=== PATIENT | female | born 1965 | race Caucasian/White ===

== ENCOUNTER 2023-11-27 18:43 | Inpatient (IN) | payer MEDICARE ==
[~2023-11-27] VITALS: Ht 167.6 cm; Wt 86.2 kg
[2023-11-28] MEDS ORDERED: MAG HYDROX/AL HYDROX/SIMETH 30 ML UDC PO PRN (01:30)
[2023-11-28] MEDS ORDERED: MAGNESIUM HYDROXIDE 30 ML UDC PO PRN (01:30)
[2023-11-28] MEDS: BLOOD SUGAR DIAGNOSTIC 1 EACH STRIP IN ONE (01:31)
[2023-11-28 01:34] VITALS: BP 154/83; TEMP 97.7; O2SAT 95
[2023-11-28 07:23] LABS: ALBUMIN 3.2 g/dL (3.4-5.0); BILIRUBIN,TOTAL 0.5 mg/dL (0.2-1.0); CALCIUM, SERUM 9.4 mg/dL (8.5-10.1); CREATININE 1.1 mg/dL (0.6-1.3); POTASSIUM 3.8 mmol/L (3.5-5.1); TOTAL PROTEIN, SERUM 7.4 g/dL (6.4-8.2)
[2023-11-28 08:00] VITALS: BP 165/94; TEMP 98.6; O2SAT 97
[2023-11-28] MEDS ORDERED: AMLO-213 PO (09:48)
[2023-11-28] MEDS ORDERED: CLON1PAT2 TD (09:48)
[2023-11-28] MEDS: risperiDONE 1 MG TABLET PO SCH (12:31)
[2023-11-28] MEDS: OXCARBAZEPINE 150 MG TABLET PO SCH (12:48)
[2023-11-28 16:00] VITALS: BP 122/48; TEMP 97.9; O2SAT 97
[2023-11-28 19:59] VITALS: BP 121/62; TEMP 98.4; O2SAT 97
[2023-11-29 08:00] VITALS: BP_SYST 166; BP_DIAS 92; BP_DIAS 97; TEMP 97.8; TEMP 98.6; O2SAT 97; O2SAT 99
[2023-11-29] MEDS: AMLODIPINE BESYLATE 10 MG TABLET PO SCH (09:13)
[2023-11-29] MEDS: ACETAMINOPHEN 325 MG TABLET PO PRN (09:48)
[2023-11-29] MEDS: risperiDONE 1 MG TABLET PO SCH (16:27)
[2023-11-29 20:00] VITALS: BP 151/76; TEMP 98; O2SAT 99
[2023-11-30 08:00] VITALS: BP 160/84; TEMP 98.6; O2SAT 97
[2023-11-30] MEDS: OXCARBAZEPINE 150 MG TABLET PO SCH (13:27)
[2023-11-30 16:00] VITALS: BP 130/67; TEMP 98.7; O2SAT 97
[2023-11-30 20:00] VITALS: BP 141/71; TEMP 98.1; O2SAT 96
[2023-11-30] MEDS: LORAZEPAM 0.5 MG TABLET PO PRN (22:57)
[2023-12-01 08:00] VITALS: BP 159/88; TEMP 97.7; O2SAT 97
[2023-12-01 16:00] VITALS: BP 135/79; TEMP 98.2; O2SAT 99
[2023-12-02 08:00] VITALS: BP 121/51; TEMP 98.2; O2SAT 97
[2023-12-02 16:00] VITALS: BP 131/63; TEMP 97.4; O2SAT 96
[2023-12-02 20:00] VITALS: BP 138/79; TEMP 98.3; O2SAT 99
[2023-12-03 08:00] VITALS: BP 148/74; TEMP 98.2; O2SAT 97
[2023-12-03] MEDS: CLONIDINE HCL 0.2MG/24H PTWK 1 EA PATCH TD SCH (09:08)
[2023-12-03 16:00] VITALS: BP 133/66; TEMP 98.6; O2SAT 97
[2023-12-03 20:27] VITALS: BP 151/84; TEMP 98.4; O2SAT 100
[2023-12-03] MEDS: TEMAZEPAM 7.5 MG CAPSULE PO PRN (21:35)
[2023-12-04 08:00] VITALS: BP 148/98; TEMP 97.6; O2SAT 97
[2023-12-04 16:00] VITALS: BP 133/72; TEMP 97.5; O2SAT 96
[2023-12-04 20:43] VITALS: BP 134/76; TEMP 98.1; O2SAT 98
[2023-12-05 07:12] LABS: BASOPHILS % (AUTO) 0.9 % (0.0-2.0); EOSINOPHILS # (AUTO) 0.2 K/uL (0.0-0.7); HEMATOCRIT 43 % (33-45); HEMOGLOBIN 13.9 g/dL (11.5-14.8); LYMPHOCYTES # (AUTO) 0.7 K/uL (0.8-4.8); LYMPHOCYTES % (AUTO) 14.3 % (20.0-44.0); MEAN CORPUSCULAR HEMOGLOBIN 27 PG (26.0-33.0); MEAN CORPUSCULAR HGB CONC 33 g/dl (31.0-36.0); MEAN CORPUSCULAR VOLUME 82 fL (82-100); MONOCYTES # (AUTO) 0.5 K/uL (0.1-1.30); MONOCYTES % (AUTO) 9.9 % (2.0-12.0); NEUTROPHILS # (AUTO) 3.7 K/uL (1.8-8.9); NEUTROPHILS % (AUTO) 70.9 % (43.0-81.0); PLATELET COUNT (AUTO) 259 K/uL (150-450); RED BLOOD CELL COUNT(AUTO) 5.22 MIL/uL (4.0-5.2); RED CELL DISTRIBUTION WIDTH 14.4 % (11.5-15.0); WHITE BLOOD COUNT (AUTO) 5.2 K/uL (4.3-11.0)
[2023-12-05 07:14] LABS: ALBUMIN 3.2 g/dL (3.4-5.0); BILIRUBIN,TOTAL 0.3 mg/dL (0.2-1.0); CALCIUM, SERUM 9.2 mg/dL (8.5-10.1); POTASSIUM 3.8 mmol/L (3.5-5.1); TOTAL PROTEIN, SERUM 7.4 g/dL (6.4-8.2)
[2023-12-05 08:00] VITALS: BP 166/102; TEMP 97.8; O2SAT 97
[2023-12-05 16:09] VITALS: BP 135/71; TEMP 98.3; O2SAT 98
[2023-12-05 20:32] VITALS: BP 106/67; TEMP 98; O2SAT 96
[2023-12-06 08:00] VITALS: BP 163/97; TEMP 98.7; O2SAT 97
[2023-12-06 16:00] VITALS: BP 125/66; TEMP 97.9; O2SAT 98
[2023-12-06 20:00] VITALS: BP 125/62; TEMP 98; O2SAT 97
[2023-12-06] MEDS: risperiDONE 1 MG TABLET PO SCH (21:27)
[2023-12-07 08:00] VITALS: BP 149/78; TEMP 98.3; O2SAT 98
[2023-12-07 16:00] VITALS: BP 109/60; TEMP 97.3; O2SAT 98
[2023-12-07 20:00] VITALS: BP 106/64; TEMP 98.2; O2SAT 97
[2023-12-08 08:00] VITALS: BP 159/69; TEMP 97.7; O2SAT 95
[2023-12-08 20:00] VITALS: BP 129/65; TEMP 98.7; O2SAT 97
[2023-12-09 08:00] VITALS: BP 139/86; TEMP 97.7; O2SAT 95
[2023-12-09 16:00] VITALS: BP 133/79; TEMP 97.9; O2SAT 100
[2023-12-09 20:28] VITALS: BP 136/79; TEMP 97.9; O2SAT 100
[2023-12-10 09:00] VITALS: BP 136/86; TEMP 96.9; O2SAT 99
[2023-12-10 16:18] VITALS: BP 143/74; TEMP 96.9; O2SAT 96
[2023-12-10 21:06] VITALS: BP 151/85; TEMP 97.9; O2SAT 98
[2023-12-11 08:00] VITALS: BP 122/67; TEMP 97.9; O2SAT 98
== END 2023-12-11 14:44 | DRG 885 ==
LOC: GPS 11-28 00:48
PROVIDERS: ADMIT Psychiatry & Neurology Psychosomatic Medicine; ATTEND Nurse Practitioner Acute Care
DX: F25.0 Schizoaffective disorder, bipolar type (principal); Z59.00 Homelessness unspecified; E44.1 Mild protein-calorie malnutrition; F29 Unspecified psychosis not due to a substance or known physiological condition; I10 Essential (primary) hypertension; R41.9 Unspecified symptoms and signs involving cognitive functions and awareness; Z79.899 Other long term (current) drug therapy; Z73.6 Limitation of activities due to disability; E88.09 Other disorders of plasma-protein metabolism, not elsewhere classified; E66.9 Obesity, unspecified; Z68.30 Body mass index [BMI] 30.0-30.9, adult; E78.5 Hyperlipidemia, unspecified
CPT/HCPCS: 36415; 80053-TC; 80061-TC; 82962-TC; 85025-TC